=== PATIENT | male | born 1990 | race African-American/Black ===

== ENCOUNTER 2025-03-04 01:21 | Emergency (ER) | payer MEDICAID ==
[~2025-03-04] VITALS: Ht 188 cm; Wt 77.0 kg
[2025-03-04 01:23] VITALS: TEMP 36.8; O2SAT 99
[2025-03-04 02:20] VITALS: BP 127/95; PULSE 65; RESP 18
[2025-03-04] MEDS: LIDOCAINE 5% PATCH TOP SCH (02:20)
[2025-03-04] MEDS: KETOROLAC 15MG/ML VIAL IM ONE (02:20)
[2025-03-04] MEDS ORDERED: NAPR-1176 MT (04:18)
[2025-03-04] MEDS ORDERED: LIDO-53 TP (04:18)
== END 2025-03-04 04:35 | disposition home or self-care (01) ==
LOC: ER 01:21
DX: M25.531 Pain in right wrist (principal); R07.89 Other chest pain
CPT/HCPCS: 99284; 71100; 73110; 96372; J1885